=== PATIENT | male | born 1945 | race African-American/Black ===

== ENCOUNTER 2017-01-18 08:06 | Emergency (ER) | payer OTHER, MEDICAID ==
[~2017-01-18] VITALS: Wt 101.0 kg
[~2017-01-18 08:06] MED LIST: ASPI-535; COLC0.6T49 PO; ENAL2.5T PO; HYDR-13 PO
--- NOTE | 2017-01-18 08:44 | ERD ---
ER Documentation Chief Complaint Date/Time DATE: 01/18/17 TIME: 08:42 Chief Complaint blood in urine, onset this am, denies pain with urination, no abd pain (RUMA OATES PA-C) HPI This a 71-year-old male who presents the emergency department today for complaints of blood in his urine. States he has never had this before. States that he did have a prostate biopsy back in June but he did not follow-up. States his last prostate numbers were approximately 7 or 8. States he has had a vasectomy in 1975. Denies any fevers or chills, nausea vomiting, abdominal pain or back pain. Denies any discharge from his penis or hematemesis or melanotic stool (RUMA OATES PA-C) ROS All systems reviewed and are negative except as per history of present illness. (RUMA OATES PA-C) Medications Home Meds Reported Medications Colchicine (Colchicine) 0.6 Mg Tablet, 0.6 MG PO BID 08/10/12 Hydrocodone Bit/Acetaminophen (Hydrocodone-Apap 5-500 Tab) 1 Tab Tablet, 1 TAB PO Q8 08/10/12 Aspirin Ec (Aspir 81) 81 Mg Tablet. 02/22/12 Enalapril Maleate* (Enalapril Maleate*) 2.5 Mg Tablet, 2.5 MG PO DAILY, 0 Refills 09/14/11 Allergies Allergies: Coded Allergies: No Known Allergies (Verified Allergy, Unknown, 01/18/17) PMhx/Soc History of Surgery: No Anesthesia Reaction: No Hx Neurological Disorder: No Hx Respiratory Disorders: No Hx Cardiac Disorders: No Hx Psychiatric Problems: No Hx Miscellaneous Medical Probl: Yes (HTN, Gout) Hx Alcohol Use: No Hx Substance Use: No Hx Tobacco Use: No (RUMA OATES PA-C) Physical Exam Vitals Vital Signs Date Time Temp Pulse Resp B/P Pulse Ox O2 Delivery O2 Flow Rate FiO2 01/18/17 08:17 97.4 88 17 174/89 98 (MALIK MCKEON DO) Physical Exam Const: pleasant, No acute distress Head: Atraumatic Eyes: Normal Conjunctiva ENT: Normal External Ears, Nose and Mouth. Neck: Full range of motion..~ No meningismus. Resp: Clear to auscultation bilaterally Cardio: Regular rate and rhythm, no murmurs Abd: Soft, non tender, non distended. Normal bowel sounds Skin: No petechiae or rashes Back: No midline or flank tenderness no CVA tenderness Ext: No cyanosis, or edema Neur: Awake and alert Psych: Normal Mood and Affect (RUMA OATES PA-C) Result Diagram: 01/18/17 0850 01/18/17 0850 Results 24 hrs Laboratory Tests Test 01/18/17 08:40 01/18/17 08:50 Urine Color YELLOW Urine Clarity SLIGHTLY CLOUDY Urine pH 6.0 Urine Specific [place] 1.015 Urine Ketones 15 Urine Nitrite NEGATIVE Urine Bilirubin 1+ Urine Ictotest NEGATIVE Urine Urobilinogen 0.2 E.U./dL Urine Leukocyte Esterase NEGATIVE Urine Microscopic RBC 25-50/HPF Urine Microscopic WBC NONE SEEN/HPF Urine Epithelial Cells RARE Urine Hemoglobin 3+ Urine Glucose NEGATIVE% Urine Total Protein NEGATIVE White Blood Count 7.410^3/ul Red Blood Count 5.3510^6/ul Hemoglobin 16.2g/dl Hematocrit 48.6% Mean Corpuscular Volume 90.8fl Mean Corpuscular Hemoglobin 30.3pg Mean Corpuscular Hemoglobin Concent 33.3g/dl Red Cell Distribution Width 14.2% Platelet Count 27717^3/UL Mean Platelet Volume 12.2fl Neutrophils % 55.5% Lymphocytes % 26.0% Monocytes % 13.3% Eosinophils % 4.1% Basophils % 0.8% Nucleated Red Blood Cells % 0.0/100WBC Neutrophils # 4.110^3/ul Lymphocytes # 1.910^3/ul Monocytes # 1.010^3/ul Eosinophils # 0.310^3/ul Basophils # 0.110^3/ul Nucleated Red Blood Cells # 0.010^3/ul Sodium Level 138mmol/L Potassium Level 3.7mmol/L Chloride Level 97mmol/L Carbon Dioxide Level 29mmol/L Anion Gap 16 Blood Urea Nitrogen 15mg/dl Creatinine 0.90mg/dl Glucose Level 117mg/dl Calcium Level 9.6mg/dl Total Bilirubin 0.9mg/dl Direct Bilirubin 0.00mg/dl Indirect Bilirubin 0.9mg/dl Aspartate Amino Transf (AST/SGOT) 46IU/L Alanine Aminotransferase (ALT/SGPT) 42IU/L Alkaline Phosphatase 122IU/L Total Protein 8.3g/dl Albumin 4.1g/dl Globulin 4.20g/dl Albumin/Globulin Ratio 0.97 (MALIK MCKEON DO) Procedures/MDM This is a 71-year-old male who presents to the emergency department today with painless hematuria. I did obtain a urinalysis as well as laboratory work Laboratory work shows no elevated white blood cell count. He is not anemic. Platelets are within normal limits. Electrolytes are within normal limits. Glucose within normal limits. Liver function is within normal limits. UA is negative for infection. There are 25-50 microscopic red blood cells. Patient has no abdominal pain on physical exam. He has no CVA tenderness. Do not feel the patient requires a CT scan at this time. Patient did have an elevated PSA had a biopsy in June 2016 however he did not follow back up with his physician. Patient symptoms at this time consistent with hematuria. Differentials to consider are nephrolithiasis however given that the hematuria is painless I have lower suspicion for this. There is no evidence of urinary tract infection. Patient denied being sexually active and have lower suspicion for STI. Other considerations are renal or bladder mass. I did discuss this with the patient. I have instructed the patient to follow back up with his urologist. Patient indicated that he did not particularly care for his urologist as it was out of this area and therefore have given him a list of resources of urologist here in this area. At this time the patient is stable for discharge and outpatient management. Patient should follow up with their PCP in the next 1-2 days. They may return to the emergency department sooner for any persistent or worsening of symptoms. Patient understood and agreed with the plan. Discussed the patient with Dr. Mckeon and he is in agreement with the plan. (RUMA OATES PA-C) Elderly male with hematuria without overt infection. No other symptoms. Advice urology referral through PCP for cystoscopy. (MALIK MCKEON DO) Departure Diagnosis: Primary Impression: Hematuria Condition: Stable RUMA OATES PA-C Jan 18, 2017 08:44 MALIK MCKEON DO Jan 19, 2017 13:12
[2017-01-18 08:59] LABS: ADD SCAN DIFF NO
[2017-01-18 09:01] LABS: ADD UMIC YES; URINE BILIRUBIN (Dip) 1+ (NEGATIVE); URINE BLOOD (Dip) 3+ (NEGATIVE); URINE COLOR YELLOW (YELLOW); URINE GLUCOSE (Dip) NEGATIVE (NEGATIVE); URINE KETONES (Dip) 15 (NEGATIVE); URINE LEUKOCYTE ESTERASE (Dip) NEGATIVE (NEGATIVE); URINE NITRITE (Dip) NEGATIVE (NEGATIVE); URINE TOTAL PROTEIN (Dip) NEGATIVE (NEGATIVE); URINE UROBILINOGEN (Dip) 0.2 E.U./dL (0.1-1.0)
[2017-01-18 09:03] LABS: BASOPHIL # 0.1 10^3/ul (0.0-0.1); BASOPHILS % 0.8 % (0.0-2.0); EOSINOPHILS # 0.3 10^3/ul (0.0-0.5); EOSINOPHILS % 4.1 % (0.0-7.0); HEMATOCRIT 48.6 % (42.0-52.0); HEMOGLOBIN 16.2 g/dl (14.0-18.0); LYMPHOCYTES # 1.9 10^3/ul (0.8-2.9); MEAN CORPUSCULAR HEMOGLOBIN 30.3 pg (29.0-33.0); MEAN CORPUSCULAR HGB CONC 33.3 g/dl (32.0-37.0); MEAN CORPUSCULAR VOLUME 90.8 fl (82.0-101.0); MEAN PLATELET VOLUME 12.2 fl (7.4-10.4); MONOCYTES % 13.3 % (0.0-11.0); NEUTROPHIL # 4.1 10^3/ul (1.6-7.5); NEUTROPHILS % 55.5 % (39.0-77.0); PLATELET COUNT 144 10^3/UL (140-415); RED BLOOD COUNT 5.35 10^6/ul (4.70-6.10); RED CELL DISTRIBUTION WIDTH 14.2 % (11.5-14.5); WHITE BLOOD COUNT 7.4 10^3/ul (4.8-10.8)
[2017-01-18 09:07] LABS: ICTOTEST NEGATIVE (NEGATIVE); URINE RBCS 25-50 /HPF (0)
[2017-01-18 09:16] LABS: ALBUMIN 4.1 g/dl (3.3-4.9)
[2017-01-18 09:17] LABS: POTASSIUM 3.7 mmol/L (3.5-5.1)
[2017-01-18 09:19] LABS: ALBUMIN/GLOBULIN RATIO 0.97; BILIRUBIN,INDIRECT 0.9 mg/dl (0-1.1); BILIRUBIN,TOTAL 0.9 mg/dl (0.2-1.3); CREATININE 0.9 mg/dl (0.61-1.24); TOTAL PROTEIN 8.3 g/dl (6.1-8.1)
[2017-01-18 09:20] LABS: CALCIUM 9.6 mg/dl (8.4-10.2)
== END 2017-01-18 09:50 | disposition home or self-care (01) ==
LOC: FTE 08:06
DX: R31.9 Hematuria, unspecified (principal); I10 Essential (primary) hypertension; Z79.82 Long term (current) use of aspirin
CPT/HCPCS: 36415; 80053; 81001; 81003; 85025; 99283

== ENCOUNTER 2017-07-10 09:53 | Emergency (ER) | payer OTHER, MEDICAID ==
[~2017-07-10] VITALS: Ht 175.3 cm; Wt 97.0 kg
[2017-07-10 09:58] VITALS: Ht 175.3 cm; Wt 97.0 kg
== END 2017-07-10 17:11 | disposition left against medical advice (07) ==
LOC: E/R 09:53
DX: Z53.21 Procedure and treatment not carried out due to patient leaving prior to being seen by health care provider (principal)